=== PATIENT | male | born 1955 | race Caucasian/White ===

== ENCOUNTER 2019-03-08 16:41 | Emergency (ER) | payer MEDICARE ==
[2019-03-08] MEDS ORDERED: Lidocaine 1% PF 5 ML VIAL ONE (17:01)
[2019-03-08] MEDS ORDERED: Ketorolac Tromethamine 60 MG/2 ML VIAL ONE (17:08)
--- NOTE | 2019-03-08 19:45 | RAD ---
LEFT SHOULDER THREE VIEWS 03/08/19 A comminuted fracture of the scapular body is present. The distal clavicle appears intact and the AC joint is normal in width. See CT report for further comments. There is no dislocation of the glenohum eral joint. IMPRESSION: Comminuted scapular body fracture. POS: HOME
--- NOTE | 2019-03-08 20:12 | RAD ---
PORTABLE CHEST: 03/08/19 An AP portable film at 1712 shows a normal sized heart and clear lungs. No infiltrate, pneumothorax, effusion, or mediastinal widening was seen. A fracture of the body of the left scapula is evident. Th e AC joints show no off-set. Scoliosis is present. IMPRESSION: Left scapular fracture. POS: HOME
--- NOTE | 2019-03-08 21:42 | CT ---
CT OF THE CHEST WITHOUT CONTRAST: 03/08/[address] of the chest was done following trauma. A plain radiographs show a scapular fracture. There is a comminuted fracture of the body of the left scapula. Several fracture fragments are presen t. There is no dislocation of the humeral head. The medial left clavicular head seems displaced super iorly a bit at the left sternoclavicular joint. Some frames show a natividad of cortex near the clavicul ar head, also confirming that there has been some injury here. No rib fractures were seen. There is no sign of mediastinal hematoma. The heart is normal in size. No pericardial effusion was seen. The l ungs are fully inflated with no pneumothorax or significant pleural effusion. There is little basilar atelectasis in the left lung base. The liver and spleen are included in the study and appear intact with no sign of laceration or hemato ma. The visible portions of the pancreas and kidneys (not seen completely) appear intact. No spinal f ractures were seen. Thoracic scoliosis convexed right is noted. IMPRESSION: 1. Comminuted fracture of the body of the scapula. 2. Superior subluxation of the medial left clavicle at the sternoclavicular joint. 3. No evidence of rib fracture, pneumothorax or pleural effusion. 4. Liver and spleen intact. 5. Left basilar atelectasis. Report called to Dr. Mejia at 1858 on 03/08/19. POS: HOME
== END 2019-03-08 19:17 | disposition home or self-care (01) ==
LOC: BURERS 16:41
DX: S42.112A Displaced fracture of body of scapula, left shoulder, initial encounter for closed fracture (principal); S43.205A Unspecified dislocation of left sternoclavicular joint, initial encounter; F32.9 Major depressive disorder, single episode, unspecified; Z79.899 Other long term (current) drug therapy; W19.XXXA Unspecified fall, initial encounter
CPT/HCPCS: 71045; 71250; 96372; J1885; J2001